=== PATIENT | male | born 1960 | race Caucasian/White ===

== ENCOUNTER → 2023-05-23 09:25 | Outpatient (REF) | payer BC, SELFPAY ==
[2023-05-23 10:16] LABS: % Basophils 1.3 % (0-2); % Eosinophils 1.2 % (0-6); % Immature Granulocytes 0.2 % (0-0.5); % Lymphocytes 15.1 % (20.5-51.1); % Monocytes 9.2 % (1.7-9.3); Absolute Basophils 0.1 10^3/uL (0-0.2); Absolute Eosinophils 0.1 10^3/uL (0-0.7); Absolute Lymphocytes 0.9 10^3/uL (1.2-3.4); Absolute Monocytes 0.6 10^3/uL (0.1-0.6); Absolute Neutrophils 4.3 10^3/uL (1.4-6.5); Hematocrit 24.8 % (39.0-52.0); Mean Corp Hgb Conc. 28.2 g/dL (33.0-37.0); Mean Corpuscular Hgb 18.8 pg (27.0-31.0); Mean Corpuscular Volume 66.7 fL (80.0-94.0); Mean Platelet Volume 9.6 fL (7.4-10.4); Nucleated Red Blood Cells % 0 % (-); Platelet Count 366 10^3/uL (130-400); Red Blood Cell Count 3.72 10^6/uL (4.70-6.10); Red Cell Dist. Width 17.7 % (11.5-14.5)
[2023-05-23 10:56] LABS: Urine Albumin Trace (Neg - Trace); Urine Bilirubin Negative (Negative); Urine Character Clear (Clear); Urine Color Yellow; Urine Glucose Negative (Negative); Urine Ketone Negative (Negative); Urine Leukocyte Negative (Negative); Urine Nitrite Negative (Negative); Urine Occult Blood Negative (Negative); Urine Specific Gravity 1.015 (<1.030); Urine Urobilinogen Negative (Neg - 1+)
[2023-05-23 10:57] LABS: ALT (SGPT) 15 U/L (0-50); AST (SGOT) 23 U/L (17-59); Albumin 4.3 g/dl (3.5-5.0); Alkaline Phosphatase 88 U/L (38-126); Blood Urea Nitrogen 23 mg/dl (9-20); Calcium 8.8 mg/dl (8.4-10.2); Carbon Dioxide 26 mmol/L (22-30); Chloride 106 mmol/L (98-107); Glucose 95 mg/dl (70-99); Potassium 4.9 mmol/L (3.5-5.1); Sodium 139 mmol/L (135-145); Total Bilirubin 0.4 mg/dl (0.2-1.3); Total Protein 7.1 g/dl (6.3-8.2); eGFR > 60.00
[2023-05-23 11:09] LABS: FSH 23.2 mIU/ml (1.55-9.74); Prolactin 75.3 ng/ml (3.7-17.9)
[2023-05-23 11:25] LABS: Cortisol, Random 10.9 ug/dl; PSA, Total - Screen 0.45 ng/ml (0.0-4.0)
[2023-05-23 13:07] LABS: Glycohemoglobin (HgbA1c) 5.6 % (4.0-5.6)
[2023-05-23 13:26] LABS: Anisocytosis 1+; Hypochromasia 2+; Microcytosis Slight; Normal RBC Morphology No
[2023-05-23 13:30] LABS: Ovalocytes 1+; Polychromasia Slight
[2023-05-23 13:44] LABS: Iron 26 ug/dl (49-181)
[2023-05-23 13:54] LABS: Percent Saturation 5 % (20-50); Total Iron Binding Capacity 502 ug/dl (261-462)
[2023-05-23 14:21] LABS: Ferritin 4.9 ng/ml (17.9-464.0)
[2023-05-23 14:32] LABS: IgA 233 mg/dl (70-400)
[2023-05-25 04:51] LABS: % Free Testosterone 1.2 % (1.6-2.9); Free Testosterone 28 pg/mL (47-244); Sex Hormone Binding Globulin 61 nmol/L (19-76); Total Testosterone 234 ng/dL (300-720)
[2023-05-25 14:59] LABS: tTG IgA Antibody 33.3 EU/ml (0-19); tTG IgG Antibody 37.1 EU/ml (0-19)
[2023-05-29 06:42] LABS: Endomysial IgA Antibody Titer <1:10 (<1:10)
== END ==
LOC: REG 09:25
PROVIDERS: ATTENDING PHYSICIAN Internal Medicine
DX: E23.0 Hypopituitarism (principal); Z12.5 Encounter for screening for malignant neoplasm of prostate; M54.16 Radiculopathy, lumbar region; F31.81 Bipolar II disorder; Z13.89 Encounter for screening for other disorder; E66.01 Morbid (severe) obesity due to excess calories
CPT/HCPCS: 36415; 80053; 81003; 82533; 82728; 82784; 83001; 83002; 83036; 83516; 83540; 83550; 84146; 84270; 84402; 84403; 85025; 86231; G0103

== ENCOUNTER 2023-05-26 16:35 | Inpatient (IN) | payer BC, SELFPAY ==
[2023-05-26] VITALS (7 sets, daily range): BP systolic 103–144; BP diastolic 54–80; PULSE 97–100; BMI 37.8; BMI 37.9
--- NOTE | 2023-05-26 15:08 | ED.GENMED ---
History of Present Illness
General
Chief Complaint: Abnormal Lab Value
Source: patient and family
Exam Limitations: none
Time Seen by Provider: 05/26/23 14:59
Travel History
Have you had any contact with someone who has COVID-19?: No
Do you have any symptoms of coronavirus? Fever > 100 degrees, chills, cough, shortness of breath, sore throat, loss of taste or smell, muscle aches, or headache?: No
History of Present Illness
History of Present Illness:
See MDM
Past History
Past History
ED Past Medical History: Arrthythmia, HTN, Psychiatric (Depression and anxiety) and Other (Benign pituitary adenoma)
Social History
Tobacco: Former smoker
Alcohol: Occasional
Drug: None
Personal:
Living: with family
Employment: Employed
Phy Exam
Physical Exam
Physical Exam:
See MDM
Course
Orders/Labs/Results
Orders:
Orders
05/26/23 15:07
Pantoprazole 80 mg/100 ml Nss [Protonix] 80 mg in 100 ml IV NOW
Pantoprazole [Protonix IV] 80 mg IV NOW STA
05/26/23 15:08
IV Insert/Care/Rem.- Treatment PRN
05/26/23 15:12
Type+Screen Urgent
Complete Blood Count/With Diff Urgent
Comprehensive Metabolic Panel Urgent
PTT Urgent
Prothrombin Time Urgent
05/26/23 16:04
Blood Bank Products [* Blood Bank Products] Urgent
's Orders: Delvis Ontiveros DO
Blood Bank Products: *Packed RBC Leuko(PRBC's)
Quantity: 2
Transfuse Today: Yes
Reason: Bleeding
Abnormal Lab Results
05/26/23
15:12
RBC 3.83 L 10^6/uL
(4.70-6.10)
Hgb 7.3 L g/dL
(13.0-18.0)
Hct 25.4 L %
(39.0-52.0)
MCV 66.3 L fL
(80.0-94.0)
MCH 19.1 L pg
(27.0-31.0)
MCHC 28.7 L g/dL
(33.0-37.0)
RDW 17.7 H %
(11.5-14.5)
Abs Immat Gran (auto) 0.1 H 10^3/uL
(0-0.05)
Absolute Lymphs (auto) 0.8 L 10^3/uL
(1.2-3.4)
Absolute Monos (auto) 0.8 H 10^3/uL
(0.1-0.6)
Immature Gran % 0.6 H %
(0-0.5)
Neutrophils % 76.1 H %
(42.2-75.2)
Lymphocytes % 10.7 L %
(20.5-51.1)
Monocytes % 10.7 H %
(1.7-9.3)
PT 14.8 H Sec
(11.4-14.6)
Sodium 134 L mmol/L
(135-145)
BUN 22 H mg/dl
(9-20)
Glucose 100 H mg/dl
(70-99)
05/26/23 15:12
05/26/23 15:12
Vital Signs
Initial and Last Documented VS:
Initial Vital Signs
Temp Pulse Resp BP Pulse Ox
98.7 F 64 18 131/80 99
05/26/23 14:31 05/26/23 14:31 05/26/23 14:31 05/26/23 14:31 05/26/23 14:31
Last Documented Vital Signs
Temp Pulse Resp BP Pulse Ox
98.7 F 60 41 144/75 97
05/26/23 14:31 05/26/23 15:15 05/26/23 15:30 05/26/23 15:00 05/26/23 15:00
MDM/Problems Addressed
Differential Diagnosis Includes:
HPI and MDM Narrative:
62-year-old male presenting with generalized weakness and fatigue. Patient states he has been feeling weak over the past few months. Outpatient blood work was done showing that he was anemic. His PCP has set an appointment on Tuesday for GI.
However, patient too weak and fatigued. He feels dizzy when he stands and walks. Patient attributes his anemia to likely blood loss from NSAID use. He states he takes meloxicam and ibuprofen for chronic back pain. He denies black or red stools
Physical exam
General: Well appearing and non-toxic
HEENT: protecting airway
Neck: appears supple
CV: No evidence of cyanosis. Regular rate and rhythm
Resp: No accessory muscle use
Abd: Non-distended. No significant tenderness
Rectal exam: Brown stool guaiac negative
Extremities: No deformities
Neuro: alert
Psych: Normal affect
Skin: Pale
Problems Addressed including Acute and Chronic Conditions affecting care:
1. GI bleed
Acuity: acute
Prognosis: unstable
Details: Patient started on Protonix drip. Likely in the setting of upper GI bleed from NSAID use
2. Symptomatic anemia
Acuity: acute
Prognosis: unstable
Details: Will confirm anemia and likely transfuse
Updates
Hemoglobin confirmed low at 7.3. Given the symptoms, pt consented for 2u pRBCs
Differential Diagnosis (but not limited to): Upper GI bleed, hemolysis, lower GI bleed
Testing considered: CT angio abdomen/pelvis but no evidence of brisk bleeding
Drug therapy (if applicable): OTC meds, please see d/c instruction regarding Rx drugs
Amount and/or Complexity of Data Reviewed
Clinical info obtained from: Patient
External data reviewed: N/A
Labs I independently reviewed (but not limited to): Hemoglobin 7.3
Radiology: N/A
Pulse Ox: not hypoxic
EKG independently reviewed: N/A
Warehouse Shipping Supervisor: Sinus rhythm
Critical Care: The high probability of a clinically significant, sudden or life threatening deterioration of the gastrointestinal/cardiovascular system(s) required my full and direct attention, intervention and personal management. The aggregate
critical care time was 33 minutes. This time is in addition to time spent performing reported procedures but includes the following:
[x] Data Review and interpretation
[x] Patient assessment and monitoring of vital signs
[x] Documentation
[x] Medication orders and management
Risk of Complication:
Social Determinants of health: Good social support
Discussed with other providers: Gastrointestinal, hospitalist
Escalation of Care includes Admit/Obs: Given the symptomatic anemia with concern for ongoing bleeding, will transfuse and admit
Occasional wrong word or 'sound a like' substitutions may have occurred due to the inherent limitations of voice recognition software. Read the chart carefully and recognize, using context, where substitutions have occurred.
*Critical Care Note
Total Time (30-74mins, 75-104mins- exclusive of procedures): 33 min
ED Attending Note
-
Portions of this chart may have been created with voice recognition software.� Occasional wrong word or��sound alike� substitutions may have occurred due to the inherent limitations of voice recognition software.
Discharge Plan
Departure
Patient Disposition: Admit
Date of Disposition: 05/26/23
Time of Disposition: 16:15
Admit to: Telemetry
Presentation/result/management discussed w/ accepting MD/DO: Hospitalist
Discharge Problem:
UGIB (upper gastrointestinal bleed), Symptomatic anemia
Prescriptions:
No Action
fluoxetine 20 MG capsule
20 mg PO DAILY
atenolol 50 MG tablet
50 mg PO DAILY
meloxicam 15 mg Tablet
15 mg PO DAILY
acetaminophen [Tylenol Arthritis] 650 mg Tablet Extended Release
1,300 mg PO DAILY
ferrous sulfate 325 mg (65 mg iron) Tablet
325 mg PO TID
cabergoline 0.5 mg Tablet
1 mg PO .2 TIMES A WEEK
Patient Comments:
05/26/2023, pt. takes 2 tablets 2 times per week and spaces them out roughly every 3-4 days between doses.
triamterene-hydrochlorothiazid 37.5-25 mg Tablet
1 tab PO DAILY
omeprazole 20 mg Tablet,Delayed Release (Dr/Ec)
20 mg PO DAILY
Patient Comments:
05/26/2023, OTC.
Colace
325 mg PO DAILY
Referrals:
Derick Barry DO [Family Provider] -
Interventions
Interventions:
*Risk Screen - Suicide Last Done: 05/26/23 15:39
*General Assessment Last Done: 05/26/23 15:39
*Neglect/Abuse Screening Last Done: 05/26/23 15:39
ED- Fall Risk Assessment Last Done: 05/26/23 15:42
*ED COVID-19 Vaccine History Last Done: 05/26/23 15:39
ED- Pulmonary Assessment Last Done: 05/26/23 15:42
ED- Neurological Assessment Last Done: 05/26/23 15:42
ED- Cardiac Assessment Last Done: 05/26/23 15:42
[2023-05-26 15:24] LABS: % Basophils 0.8 % (0-2); % Eosinophils 1.1 % (0-6); % Immature Granulocytes 0.6 % (0-0.5); % Lymphocytes 10.7 % (20.5-51.1); % Monocytes 10.7 % (1.7-9.3); % Neutrophils 76.1 % (42.2-75.2); Absolute Basophils 0.1 10^3/uL (0-0.2); Absolute Eosinophils 0.1 10^3/uL (0-0.7); Absolute Immature Granulocytes 0.1 10^3/uL (0-0.05); Absolute Lymphocytes 0.8 10^3/uL (1.2-3.4); Absolute Monocytes 0.8 10^3/uL (0.1-0.6); Hematocrit 25.4 % (39.0-52.0); Hemoglobin 7.3 g/dL (13.0-18.0); Mean Corp Hgb Conc. 28.7 g/dL (33.0-37.0); Mean Corpuscular Hgb 19.1 pg (27.0-31.0); Mean Corpuscular Volume 66.3 fL (80.0-94.0); Mean Platelet Volume 9.5 fL (7.4-10.4); Nucleated Red Blood Cells % 0 % (-); Platelet Count 351 10^3/uL (130-400); Red Blood Cell Count 3.83 10^6/uL (4.70-6.10); Red Cell Dist. Width 17.7 % (11.5-14.5); White Blood Cell Count 7.9 10^3/uL (4.8-10.8)
[2023-05-26 15:43] LABS: INR 1.15; PT 14.8 Sec (11.4-14.6)
[2023-05-26 15:44] LABS: ALT (SGPT) 17 U/L (0-50); APTT 29.9 Sec (23.4-35.0); AST (SGOT) 25 U/L (17-59); Albumin 4.3 g/dl (3.5-5.0); Alkaline Phosphatase 93 U/L (38-126); Blood Urea Nitrogen 22 mg/dl (9-20); Carbon Dioxide 22 mmol/L (22-30); Chloride 104 mmol/L (98-107); Estimated Creatinine Clearance 108 ml/min; Glucose 100 mg/dl (70-99); Potassium 4.5 mmol/L (3.5-5.1); Sodium 134 mmol/L (135-145); Total Bilirubin 0.6 mg/dl (0.2-1.3); Total Protein 7.3 g/dl (6.3-8.2); eGFR > 60.00
[2023-05-26] MEDS: PROTONIX 100 IV (15:49)
[2023-05-26] MEDS: PROTONIX IV 80 MG IV (15:49)
--- NOTE | 2023-05-26 16:24 | HPS.HSE ---
Family Physician
-
Family Physician: Derick Barry
Chief Complaint
-
lightheaded
History of Present Illness
62-year-old male with extensive past medical history who is presenting from home with lightheaded dizziness. States her symptoms got worse in the last 48 hours. States he has a severe spinal stenosis and was on meloxicam. Patient ran out of
prescription for meloxicam and switch to taking ibuprofen 800 mg daily. States he was also started on p.o. iron and subsequently has not had bowel movements for 4 days now. Patient states of abdominal discomfort at the periumbilical area. No
diffuse pain. Denies any nausea or vomiting. Denies any chest pain or shortness of breath. Denies any numbing or tingling. States of chronic back pain. States had colonoscopy last year with Dr. Herbert and was found to be clear and was found to
have hemorrhoids only.
Medical History
Past Medical History
Past Medical History: Reports Other
Additional Past Medical History:
Spinal stenosis
SVT
Mood disorder
Pituitary adenoma
Morbid obesity due to excess calories
Hemorrhoids
Past Surgical History: Reports Cardiac (Cardiac catheterization)
Social History
Tobacco: Former Smoker
Alcohol: Occasional
Personal:
Living: With Family
Family History
Family History: Not pertinent
Allergies / Home Medications
Allergies reflects when Allergies were last updated in [facility] ([facility]
Home Medications with original date entered in [facility] ([facility])
Allergy/Medication List:
Allergies
Allergy/AdvReac Type Severity Reaction Status Date / Time
No Known Allergies Allergy Verified 05/26/23 14:31
Home Medications
atenolol 50 mg tablet 50 mg PO DAILY 12/22/19
fluoxetine 20 mg capsule 20 mg PO DAILY 12/22/19
Colace 325 mg PO DAILY 05/26/23
acetaminophen 650 mg tablet,extended release 1,300 mg PO DAILY 05/26/23
cabergoline 0.5 mg tablet 1 mg PO .2 TIMES A WEEK 05/26/23
ferrous sulfate 325 mg (65 mg iron) tablet 325 mg PO TID 05/26/23
meloxicam 15 mg tablet 15 mg PO DAILY 05/26/23
omeprazole 20 mg tablet,delayed release 20 mg PO DAILY 05/26/23
triamterene 37.5 mg-hydrochlorothiazide 25 mg tablet 1 tab PO DAILY 05/26/23
Review of Systems
-
History Source: Patient
A 12 point ROS was completed and negative except as noted: Yes
Physical Exam
Vital Signs
Vital Signs
Temp Pulse Resp BP Pulse Ox
98.7 F 60 41 144/75 97
05/26/23 14:31 05/26/23 15:15 05/26/23 15:30 05/26/23 15:00 05/26/23 15:00
Physical Exam
General: Well Developed, Well Nourished, No Apparent Distress and Morbidly Obese
HEENT: NormoCephalic, Moist mucous membranes and Atraumatic
Respiratory: Clear
Cardiac: S1/S2 and Regular Rhythm; No Murmur or Rub
GI: Soft, Non Tender, Non Distended and Normal Bowel Sounds; No Organomegaly
Rectal: Deferred by Provider
Musculoskeletal: No Clubbing, No Cyanosis and No Edema
Skin: No Rash
Neuro: Awake, Oriented, AO x 3 and Nonfocal/grossly intact
Psych: Calm
Laboratory Results
-
05/26/23 15:12
05/26/23 15:12
Laboratory Results
PT 14.8 Sec (11.4-14.6) H 05/26/23 15:12
INR 1.15 05/26/23 15:12
APTT 29.9 Sec (23.4-35.0) 05/26/23 15:12
Total Bilirubin 0.6 mg/dl (0.2-1.3) 05/26/23 15:12
AST 25 U/L (17-59) 05/26/23 15:12
ALT 17 U/L (0-50) 05/26/23 15:12
Alkaline Phosphatase 93 U/L (38-126) 05/26/23 15:12
Impression/Plan
-
#Symptomatic anemia likely secondary to upper GI bleed likely secondary to ulcer versus esophagitis versus AVMs
#Iron def anemia
N.p.o.
IV fluids
PPI drip
Agree with blood transfusion
Transfuse hemoglobin less than 7 or with acute bleeding
Check abdominal x-rays
2 IVs at all times
Gastroenterology has been notified by ER.
#History of SVT
Continue atenolol
Monitor on telemetry
#Primary hypertension
Hold triamterene/hydrochlorothiazide for now
#Mood disorder
continue fluoxetine
#Pituitary adenoma
continue cabergoline
#Chronic spinal stenosis
PT OT
DVT prophylaxis SCDs in the setting of GI bleed
Discussed with spouse at bedside in details
I spent a total of 78 minutes with the patient or on the floor. More than 50% of this time involved counseling and coordination of care.
--- NOTE | 2023-05-26 17:47 | CON.GI ---
Consultation
-
Date/Time Consultation Requested: 05/26/23
Date/Time Consultation Performed: 05/26/23
Requesting Provider:
Performing Provider:
Reason for Consultation: symptomatic severe YAN
Medical History
Chief Complaint / HPI
Chief Complaint: fatigue, weakness, dizziness, YAN
History of Present Illness:
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
disorder who for the past 2 weeks or so has been feeling extreme fatigue and recently also has been experiencing dyspnea on exertion with dizziness. He had seen his PCP on Tuesday and had blood work done and his hemoglobin was 7 (13.6 in 2019)he was
started on oral iron 3 times a day and was scheduled for emergent GI appointment on Tuesday to have endoscopy but he progressively felt weaker which prompted him to come into the emergency room. He takes almost 800 mg of ibuprofen daily for the past
couple of months and prior to that was using meloxicam he denies any abdominal pain currently, no recent weight loss, no fevers or chills, no rectal bleeding or melena His last bowel movement was 2 days prior to admission which he says was brown.
He usually has a bowel movement every day but was more constipated with oral iron, his is an ER nurse here at and she noted that last week on Tuesday his stools smelled like melena but none since then. He denies any rectal bleeding. He
does have chronic reflux and has been on Prilosec for the past couple of years 20 mg daily. He denies any symptoms of dysphagia. He had a colonoscopy in [address] Herbert which showed hemorrhoids and was otherwise unremarkable and recommended
repeat in 10 years.
Past Medical History
Past Medical History: Other (Spinal stenosis with chronic back pain, SVT, Mood disorder, HTN, Pituitary adenoma, Hemorrhoids)
Past Surgical History: Other (none)
Social History
Tobacco: Former Smoker (quit 30 years ago)
Alcohol: Occasional
Drug: None
Personal:
Living: With Family
Employment: Other ([employer] business)
Family History
Family History: Reviewed & Not Pertinent
Allergies / Home Medications
Allergy/AdvReac Type Severity Reaction Status Date / Time
No Known Allergies Allergy Verified 05/26/23 14:31
Medication Instructions Recorded
atenolol 50 mg tablet 50 mg PO DAILY 12/22/19
fluoxetine 20 mg capsule 20 mg PO DAILY 12/22/19
Colace 325 mg PO DAILY 05/26/23
acetaminophen 650 mg 1,300 mg PO DAILY 05/26/23
tablet,extended release
cabergoline 0.5 mg tablet 1 mg PO .2 TIMES A WEEK 05/26/23
ferrous sulfate 325 mg (65 mg 325 mg PO TID 05/26/23
iron) tablet
meloxicam 15 mg tablet 15 mg PO DAILY 05/26/23
omeprazole 20 mg tablet,delayed 20 mg PO DAILY 05/26/23
release
triamterene 37.5 1 tab PO DAILY 05/26/23
mg-hydrochlorothiazide 25 mg tablet
Review of Systems
-
All other systems: A 12 pt ROS was Negative except as stated above in HPI
Vital Signs
Temp Pulse Resp BP Pulse Ox
98.7 F 56 17 144/75 98
05/26/23 14:31 05/26/23 16:36 05/26/23 16:36 05/26/23 15:00 05/26/23 16:15
Physical Exam
Exam
General: No Apparent Distress
HEENT: Normocephalic
Respiratory: Clear
Cardiac: S1/S2
GI: Soft, Non Tender, Non Distended and Normal Bowel Sounds
Musculoskeletal: No Clubbing
Skin: Warm and Other (pale)
Neuro: Awake, Alert and Oriented
Psych: Calm
Results
WBC 7.9 10^3/uL (4.8-10.8) 05/26/23 15:12
Hgb 7.3 g/dL (13.0-18.0) L 05/26/23 15:12
Hct 25.4 % (39.0-52.0) L 05/26/23 15:12
MCV 66.3 fL (80.0-94.0) L 05/26/23 15:12
Plt Count 351 10^3/uL (130-400) 05/26/23 15:12
Absolute Neuts (auto) 6.0 10^3/uL (1.4-6.5) 05/26/23 15:12
PT 14.8 Sec (11.4-14.6) H 05/26/23 15:12
INR 1.15 05/26/23 15:12
APTT 29.9 Sec (23.4-35.0) 05/26/23 15:12
Sodium 134 mmol/L (135-145) L 05/26/23 15:12
Potassium 4.5 mmol/L (3.5-5.1) 05/26/23 15:12
Chloride 104 mmol/L (98-107) 05/26/23 15:12
Carbon Dioxide 22 mmol/L (22-30) 05/26/23 15:12
BUN 22 mg/dl (9-20) H 05/26/23 15:12
Creatinine 1.0 mg/dL (0.7-1.3) 05/26/23 15:12
Calcium 9.0 mg/dl (8.4-10.2) 05/26/23 15:12
Total Bilirubin 0.6 mg/dl (0.2-1.3) 05/26/23 15:12
AST 25 U/L (17-59) 05/26/23 15:12
ALT 17 U/L (0-50) 05/26/23 15:12
Alkaline Phosphatase 93 U/L (38-126) 03/07/24 15:12
Diagnostic Image Results:
Prior GI Procedures:
EGD: none
Colonoscopy: 04/20/22 Impression:� � � � � � - Internal hemorrhoids.
�� � � � � � � � � � � - The examination was otherwise normal.
�� � � � � � � � � � � - No specimens collected.
Assessment / Plan
-
1. Severe symptomatic iron deficiency anemia hemoglobin dropped to 7 from his baseline of 13 likely both from chronic blood loss and possible acute blood loss anemia currently has no rectal bleeding or melena but last week on Tuesday his Laura
(ER nurse at ) said that his bowel movement smelled like melena. would recommend transfusion of packed red blood cells today since he was having extreme fatigue with dizziness and presyncope. Will also give him IV iron infusions, will schedule
him for endoscopy tomorrow will be performed sooner if he has any signs of bleeding. He is currently on Protonix drip also most likely etiology is peptic ulcer disease from chronic NSAID use but he also has chronic reflux and has been on Prilosec
20 mg daily need to also rule out underlying possible Lewis's esophagus versus esophagitis or gastritis or angiectasias and less likely neoplasm.
-
-
Thank you for consultation and allowing me to participate in the patient's care. Please call the human relations professor GI physician during the after hours with any questions or concerns.
[2023-05-26] MEDS: FERRLECIT 110 MG IV (19:52)
--- NOTE | 2023-05-26 20:40 | PTCARENOTE ---
Received pt from ED via stretcher. Pt ambulated to bed independently, no complaints of lightheadedness or dizziness. No complaints of pain. Assessed and oriented to room. court recording monitor placed. Pt verbalized understanding of call palacios. Call palacios
within close reach. Will continue to monitor.
[2023-05-26 21:42] LABS: Hematocrit 23.7 % (39.0-52.0)
[2023-05-26 21:51] LABS: Hemoglobin 6.9 g/dL (13.0-18.0)
--- NOTE | 2023-05-26 22:13 | PTCARENOTE ---
Lab informed this RN of critical hgb lab value, hgb result= 6.9. RESIDENT CARE PROVIDER made aware, no new orders provided.
[2023-05-26] MEDS: NSS 1000 IV (22:34)
--- NOTE | 2023-05-26 23:14 | PTCARENOTE ---
1 unit PRBC's started as ordered. No signs or symptoms of reaction. Pt comfortable in bed.
[2023-05-27] VITALS (12 sets, daily range): BP systolic 116–155; BP diastolic 69–87; PULSE 58–98
[2023-05-27] MEDS: PROTONIX 100 IV ×2 (01:23→12:22)
--- NOTE | 2023-05-27 02:11 | PTCARENOTE ---
1 unit PRBC's started as ordered. No signs or symptoms of reaction. Pt comfortable in bed.
[2023-05-27 06:31] LABS: Hematocrit 30.3 % (39.0-52.0)
[2023-05-27 06:33] LABS: Hemoglobin 8.9 g/dL (13.0-18.0)
[2023-05-27 06:56] LABS: Blood Urea Nitrogen 19 mg/dl (9-20); Calcium 9.2 mg/dl (8.4-10.2); Carbon Dioxide 23 mmol/L (22-30); Chloride 104 mmol/L (98-107); Estimated Creatinine Clearance > 125 ml/min; Glucose 93 mg/dl (70-99); Potassium 4.2 mmol/L (3.5-5.1); Sodium 138 mmol/L (135-145); eGFR > 60.00
[2023-05-27 07:43] LABS: Hepatitis C Antibody Negative (Negative)
--- NOTE | 2023-05-27 10:04 | W.PN.HOSP.TC ---
Today's Communication/Plan
-
Await endoscopy
Diet per GI
If tolerating diet DC fluids
Bowel regimen
Assessment / Plan
Assessment / Plan
#Symptomatic anemia likely secondary to upper GI bleed likely secondary to ulcer versus esophagitis versus AVMs
#Iron� def anemia
#Suspected acute on chronic blood loss anemia
N.p.o.
IV fluids
PPI drip
Hemoglobin 8.9 status post 2 units of PRBC
Transfuse hemoglobin less than 7 or with acute bleeding
2 IVs at all times
Gastroenterology on board
# Constipation likely secondary to p.o. iron
Bowel regimen post endoscopy
#History of SVT
Continue atenolol
Monitor on telemetry
#Primary hypertension now with orthostatic hypotension
Hold triamterene/hydrochlorothiazide for now
Orthostatic positive. Hold BP meds. Continue fluids
#Mood disorder
continue fluoxetine
#Pituitary adenoma
continue cabergoline
#Chronic spinal stenosis
PT OT
DVT� prophylaxis SCDs in the setting of GI bleed
Anticipated Discharge: > 48 hours
Subjective/Interval History
-
Date of Service: May 27, 2023
States feeling better after blood transfusion
Remains with no bowel movements
Objective Data
-
Labs:
Laboratory Results
05/27/23
06:02
Hgb 8.9 L D
Hct 30.3 L
Sodium 138
Potassium 4.2
Chloride 104
Carbon Dioxide 23
BUN 19
Creatinine 0.8
Glucose 93
Calcium 9.2
Vital Signs:
Vital Signs
Temp Pulse Resp BP Pulse Ox
97.7 F 54 17 142/87 99
05/27/23 07:47 05/27/23 07:47 05/27/23 07:47 05/27/23 07:47 05/27/23 07:47
I&O
05/26/23 05/27/23 05/28/23
06:59 06:59 06:59
Intake Total 550 / 550
Balance 550 / 550
Physical Exam
-
General: Well Developed, No Apparent Distress and Morbidly Obese
HEENT: Normocephalic, Atraumatic and Moist Mucous Membranes
Respiratory: Clear to Auscultation
Cardiac: Regular Rhythm and S1/S2; Negative Murmur, Rub or Gallop
GI: Soft, Nontender, Nondistended and Normal Bowel Sounds; Negative Organomegaly
Rectal: Deferred by Provider
Musculoskeletal: No Clubbing, No Cyanosis and No Edema
Skin: Negative Rash
Neuro: Awake, Alert, Oriented, AO x 3, No Motor Deficits and Nonfocal/Grossly Intact
Psych: Calm
[2023-05-27] MEDS: TYLENOL 650 MG PO ×2 (12:08→20:23)
[2023-05-27] MEDS: TENORMIN 50 MG PO (12:09)
[2023-05-27] MEDS: PROZAC 20 MG PO (12:11)
[2023-05-27] MEDS: DULCOLAX 10 MG PO (12:11)
[2023-05-27] MEDS: NSS 1000 IV (12:11)
[2023-05-27] MEDS: MIRALAX 17 GRAMS PO ×2 (12:12→20:22)
[2023-05-27] MEDS: FERRLECIT 110 MG IV (14:07)
--- NOTE | 2023-05-27 15:19 | CM ---
Chart reviewed> Spoke with pt at bedside
Pt lives in a 2 story home with his
Independent, works, driving
Denies DME in home
Denies past snf/HH
PCP - Dr Jose Guevara
Pharm - [facility]
Will have ride at d/c
Plan - anticipate home no needs
--- NOTE | 2023-05-27 16:13 | PTCARENOTE ---
Assumed care of pt @ 1600. Pt in bed with family at beside. Personal items and call light within reach. IVF infusing. All needs met.
[2023-05-27] MEDS: PROTONIX 40 MG PO (20:23)
[2023-05-28] MEDS: NSS IV ×3 (01:35→12:47)
[2023-05-28 03:00] VITALS: BP 145/76
[2023-05-28 04:00] VITALS: BP 142/81; BP 145/76
[2023-05-28 07:45] VITALS: BP 154/96
[2023-05-28 08:13] LABS: % Basophils 1.3 % (0-2); % Eosinophils 1.9 % (0-6); % Immature Granulocytes 0.2 % (0-0.5); % Lymphocytes 14.8 % (20.5-51.1); % Monocytes 11.1 % (1.7-9.3); % Neutrophils 70.7 % (42.2-75.2); Absolute Basophils 0.1 10^3/uL (0-0.2); Absolute Eosinophils 0.1 10^3/uL (0-0.7); Absolute Lymphocytes 0.8 10^3/uL (1.2-3.4); Absolute Monocytes 0.6 10^3/uL (0.1-0.6); Absolute Neutrophils 3.7 10^3/uL (1.4-6.5); Hematocrit 32.8 % (39.0-52.0); Hemoglobin 9.9 g/dL (13.0-18.0); Mean Corp Hgb Conc. 30.2 g/dL (33.0-37.0); Mean Corpuscular Hgb 20.9 pg (27.0-31.0); Mean Corpuscular Volume 69.3 fL (80.0-94.0); Mean Platelet Volume 10.2 fL (7.4-10.4); Nucleated Red Blood Cells % 0 % (-); Platelet Count 326 10^3/uL (130-400); Red Blood Cell Count 4.73 10^6/uL (4.70-6.10); White Blood Cell Count 5.2 10^3/uL (4.8-10.8)
[2023-05-28 08:31] LABS: Blood Urea Nitrogen 18 mg/dl (9-20); Carbon Dioxide 17 mmol/L (22-30); Chloride 105 mmol/L (98-107); Estimated Creatinine Clearance > 125 ml/min; Glucose 81 mg/dl (70-99); Potassium 4.8 mmol/L (3.5-5.1); Sodium 137 mmol/L (135-145); eGFR > 60.00
[2023-05-28] MEDS: TENORMIN 50 MG PO (08:36)
[2023-05-28] MEDS: PROZAC 20 MG PO (08:36)
[2023-05-28] MEDS: TYLENOL 650 MG PO (08:36)
[2023-05-28] MEDS: PROTONIX 40 MG PO (08:36)
[2023-05-28] MEDS: MIRALAX 17 GRAMS PO (08:36)
[2023-05-28 11:32] VITALS: BP 145/89
--- NOTE | 2023-05-28 13:18 | W.PN.HOSP.TC ---
Addendum entered and electronically signed by Carla Velazco MD 05/28/23 16:27:
total DC time 35 min
Original Note:
Today's Communication/Plan
-
see A/P
DC home today
Assessment / Plan
Assessment / Plan
A/P:
# Symptomatic anemia likely secondary to upper GI bleed, likely secondary to ulcer versus esophagitis versus AVMs
# Iron�def anemia
# Suspected acute on chronic blood loss anemia
status post 2 units of PRBC, Hgb today 9.9
s/p EGD 05/26: noted Gastric erosions / superficial ulcers with stigmata of recent bleeding. Friable. Biopsied (H. pylori).
Follow pathology results.
No aspirin or NSAIDs
Cont Protonix 40 mg PO BID.
Follow up with GI outpatient
# Constipation likely secondary to p.o. iron, constipation has resolved after bowel regimen
# History of SVT
Continue atenolol
Monitor on telemetry
# Primary hypertension
# orthostatic hypotension
Hold triamterene/hydrochlorothiazide for now
Orthostatic positive.
Hold BP meds.
s/p IVF
repeat orthostatic VS
# Mood disorder
continue fluoxetine
# Pituitary adenoma
continue cabergoline
# Chronic spinal stenosis
DVT: prophylaxis SCDs in the setting of GI bleed
Anticipated Discharge: Today
Subjective/Interval History
-
Date of Service: May 28, 2023
Objective Data
-
Labs:
Laboratory Results
05/28/23
07:27
WBC 5.2
Hgb 9.9 L
Hct 32.8 L
Plt Count 326
Sodium 137
Potassium 4.8
Chloride 105
Carbon Dioxide 17 L
BUN 18
Creatinine 0.8
Glucose 81
Calcium 9.0
Vital Signs:
Vital Signs
Temp Pulse Resp BP Pulse Ox
36.6 C 61 17 145/89 98
05/28/23 11:32 05/28/23 11:32 05/28/23 11:32 05/28/23 11:32 05/28/23 11:32
I&O
05/27/23 05/28/23 05/29/23
06:59 06:59 07:59
Intake Total 550 / 550 1600 / 1600
Balance 550 / 550 1600 / 1600
Review of Systems
-
All other systems: Reviewed and negative
Physical Exam
-
General: Well Developed, Well Nourished, No Apparent Distress, Comfortable and Obese
HEENT: Normocephalic, Atraumatic and Moist Mucous Membranes
Respiratory: Clear to Auscultation and Non Labored Respirations; Negative Accessory Resp Muscle Use
Cardiac: Regular Rhythm and S1/S2; Negative Murmur, Rub or Gallop
GI: Soft, Nontender, Nondistended and Normal Bowel Sounds; Negative Organomegaly
Rectal: Deferred by Provider
Musculoskeletal: No Clubbing, No Cyanosis and No Edema
Skin: Negative Rash
Neuro: Awake, Alert, Oriented and Nonfocal/Grossly Intact
Psych: Calm and Intact Judgement/Insight
Data Reviewed
-
Labs: Labs Reviewed by me
[2023-05-28] MEDS: FERRLECIT 110 MG IV (13:53)
[2023-05-28 14:15] VITALS: BP 150/89; BP 155/79; BP 167/87; PULSE 56; PULSE 58; PULSE 66
[2023-05-28 14:16] VITALS: BP 155/79
--- NOTE | 2023-05-28 14:32 | CM ---
Plan: Discharge to home today without services
Patient reported that friends will provide transport home
[2023-05-28] MEDS: FLUZONE QUAD 2023-2024 SYRINGE 0.5 ML IM (15:50)
--- NOTE | 2023-05-28 16:18 | W.DCSUMMARY ---
Discharge Summary
Discharge Data
Date of Admission: 05/26/23
Date of Discharge: 05/28/23
-
Pending Results: No
Hospital Course
Principal Diagnosis:
Symptomatic anemia secondary to upper GI bleed from gastric erosions / superficial ulcers
Iron�def anemia
Orthostatic hypotension
Chronic Diagnoses:�
History of supraventricular tachycardia, on atenolol
Primary hypertension
Mood disorder on fluoxetine
Pituitary adenoma, on cabergoline
Chronic spinal stenosis
Consultations:�
Gastroenterology
Procedures:�
EGD 05/26: noted Gastric erosions / superficial ulcers with stigmata of recent bleeding. Friable. Biopsied (H. pylori).
Clinical course:�
This is a 62-year-old male, with past medical history as stated above, who presented with�lightheadedness and dizziness due to symptomatic anemia. His hemoglobin was noted to be low at 6.9 on admission.
Problem 1:
Symptomatic anemia secondary to upper GI bleed from gastric erosions / superficial ulcers.
This was associated with iron deficiency anemia and orthostatic hypotension.
The patient received 2 units PRBC transfusion during his admission and his hemoglobin improved to 9.9 on the day of discharge. He can continue to check a CBC outpatient with result to his PCP.
He underwent EGD on 05/26: which noted Gastric erosions / superficial ulcers with stigmata of recent bleeding. Friable. Biopsied (H. pylori).
He can follow pathology results outpatient with GI.
He has been informed to discontinue any NSAID use including aspirin per GI recommendation.
He can continue Protonix 40 mg PO BID until further directed by GI.
He can follow up with GI outpatient.
Of note, his orthostatic hypotension resolved. His prior to admission triamterene-hydrochlorothiazide was discontinued. He can follow-up with his PCP outpatient for continued blood pressure monitoring.
As for the rest of his medical problems, they were stable during his hospital stay.
Discharge Plan
-
Patient Disposition: Home (Routine Discharge)
Discharge Diagnosis/Procedures: Symptomatic anemia likely secondary to upper GI bleed from Gastric erosions / superficial ulcers; orthostatic hypotension
Condition: Fair
Diet: Regular and 2 Gram Sodium
Activity: As tolerated
Driving Restrictions: As prior to admission
Blood Work: CBC and BMP in 1 week, result to PCP
Activity Restrictions/Additional Instructions:
Follow up with GI outpatient for biopsy result.
Follow up with your PCP for BP monitoring.
Referrals:
Derick Barry DO [Family Provider] - in less than 1 week
Additional Discharge Medication Instructions: No aspirin or NSAIDs.
Take Protonix 40 mg PO twice daily until further directed by the GI doctor.
Prescriptions:
New
pantoprazole 40 mg Tablet,Delayed Release (Dr/Ec)
40 mg PO BID Qty: 60 0RF
Continued
fluoxetine 20 MG capsule
20 mg PO DAILY
atenolol 50 MG tablet
50 mg PO DAILY
acetaminophen 650 mg Tablet Extended Release
1,300 mg PO DAILY
ferrous sulfate 325 mg (65 mg iron) Tablet
325 mg PO TID
cabergoline 0.5 mg Tablet
1 mg PO SUWE
Patient Comments:
05/26/2023, pt. takes 2 tablets 2 times per week and spaces them out roughly every 3-4 days between doses.
Colace
325 mg PO DAILY
Discontinued
meloxicam 15 mg Tablet
15 mg PO DAILY
triamterene-hydrochlorothiazid 37.5-25 mg Tablet
1 tab PO DAILY
omeprazole 20 mg Tablet,Delayed Release (Dr/Ec)
20 mg PO DAILY
Patient Comments:
05/26/2023, OTC.
Discharge Orders:
Discharge Patient (As Directed); Ordered 05/28/23
Ordered By: Carla Velaczo
== END 2023-05-28 16:23 | disposition home or self-care (01) | DRG 379 ==
LOC: 3 WEST ACU 16:35
PROVIDERS: Internal Medicine Gastroenterology; ADMITTING PHYSICIAN Hospitalist; ATTENDING PHYSICIAN Internal Medicine; CONSULT PHYSICIAN Internal Medicine Gastroenterology; EMERGENCY PHYSICIAN Student in an Organized Health Care Education/Training Program; FAMILY PHYSICIAN Internal Medicine
PROC: 30233N1 Transfusion of Nonautologous Red Blood Cells into Peripheral Vein, Percutaneous Approach (ICD-10-PCS; 2023-05-26)
PROC: 0DB68ZX Excision of Stomach, Via Natural or Artificial Opening Endoscopic, Diagnostic (ICD-10-PCS; 2023-05-27)
DX: K25.4 Chronic or unspecified gastric ulcer with hemorrhage (principal); Z87.891 Personal history of nicotine dependence; D50.0 Iron deficiency anemia secondary to blood loss (chronic); I10 Essential (primary) hypertension; D35.2 Benign neoplasm of pituitary gland; M48.00 Spinal stenosis, site unspecified; F32.A Depression, unspecified; I95.1 Orthostatic hypotension
CPT/HCPCS: 88305; 74019; 80048; 80053; 85014; 85018; 85025; 85610; 85730; 86803; 86850; 86900; 86901; 86920; 88342; 90686; 96374; 99291; G0008; J2916; P9016

== ENCOUNTER → 2023-06-03 13:44 | Outpatient (REF) | payer BC, SELFPAY ==
[2023-06-03 14:16] LABS: % Basophils 1.2 % (0-2); % Eosinophils 2.1 % (0-6); % Immature Granulocytes 0.3 % (0-0.5); % Lymphocytes 16.7 % (20.5-51.1); % Monocytes 16.2 % (1.7-9.3); % Neutrophils 63.5 % (42.2-75.2); Absolute Basophils 0.1 10^3/uL (0-0.2); Absolute Eosinophils 0.1 10^3/uL (0-0.7); Absolute Monocytes 0.9 10^3/uL (0.1-0.6); Absolute Neutrophils 3.6 10^3/uL (1.4-6.5); Hematocrit 34.9 % (39.0-52.0); Hemoglobin 10.5 g/dL (13.0-18.0); Mean Corp Hgb Conc. 30.1 g/dL (33.0-37.0); Mean Corpuscular Hgb 21.6 pg (27.0-31.0); Mean Corpuscular Volume 71.7 fL (80.0-94.0); Mean Platelet Volume 10.7 fL (7.4-10.4); Nucleated Red Blood Cells % 0 % (-); Platelet Count 214 10^3/uL (130-400); Red Blood Cell Count 4.87 10^6/uL (4.70-6.10); Red Cell Dist. Width 25.2 % (11.5-14.5); White Blood Cell Count 5.7 10^3/uL (4.8-10.8)
[2023-06-03 14:31] LABS: Blood Urea Nitrogen 23 mg/dl (9-20); Calcium 9.2 mg/dl (8.4-10.2); Carbon Dioxide 22 mmol/L (22-30); Chloride 105 mmol/L (98-107); Glucose 79 mg/dl (70-99); Potassium 4.9 mmol/L (3.5-5.1); Sodium 136 mmol/L (135-145); eGFR > 60.00
[2023-06-03 15:08] LABS: Anisocytosis Slight; Burr Cells Slight; Hypochromasia 1+; Normal RBC Morphology No; Ovalocytes 1+; Polychromasia 1+; Tear Drop Red Blood Cells Slight
== END ==
LOC: REG 13:44
PROVIDERS: ATTENDING PHYSICIAN Internal Medicine
DX: D64.9 Anemia, unspecified (principal); I10 Essential (primary) hypertension
CPT/HCPCS: 36415; 80048; 85025

== ENCOUNTER → 2023-07-18 09:41 | Outpatient (REF) | payer BC, SELFPAY ==
[2023-07-18 10:44] LABS: % Basophils 0.5 % (0-2); % Immature Granulocytes 0.2 % (0-0.5); % Lymphocytes 17.5 % (20.5-51.1); % Monocytes 14.9 % (1.7-9.3); % Neutrophils 64.9 % (42.2-75.2); Absolute Eosinophils 0.1 10^3/uL (0-0.7); Absolute Monocytes 0.8 10^3/uL (0.1-0.6); Absolute Neutrophils 3.6 10^3/uL (1.4-6.5); Hematocrit 36.7 % (39.0-52.0); Hemoglobin 11.8 g/dL (13.0-18.0); Mean Corp Hgb Conc. 32.2 g/dL (33.0-37.0); Mean Corpuscular Hgb 26.8 pg (27.0-31.0); Mean Corpuscular Volume 83.2 fL (80.0-94.0); Mean Platelet Volume 10.5 fL (7.4-10.4); Nucleated Red Blood Cells % 0 % (-); Platelet Count 213 10^3/uL (130-400); Red Blood Cell Count 4.41 10^6/uL (4.70-6.10); White Blood Cell Count 5.5 10^3/uL (4.8-10.8)
== END ==
LOC: REG 09:41
PROVIDERS: ATTENDING PHYSICIAN Internal Medicine
DX: K25.4 Chronic or unspecified gastric ulcer with hemorrhage (principal)
CPT/HCPCS: 36415; 85025

== ENCOUNTER → 2023-08-24 06:27 | Day surgery (SDC) | payer BC, SELFPAY | LOC: GI 06:27 | PROVIDERS: ATTENDING PHYSICIAN Internal Medicine Gastroenterology; FAMILY PHYSICIAN Internal Medicine | DX: D50.9 Iron deficiency anemia, unspecified (principal); K31.89 Other diseases of stomach and duodenum; K29.60 Other gastritis without bleeding | CPT/HCPCS: 43239; 88305; 88313 ==